=== PATIENT | female | born 1970 | race Caucasian/White ===

== ENCOUNTER 2023-05-19 09:43 | Outpatient (AMB) | payer OTHER, SELFPAY ==
--- NOTE | 2023-05-19 09:48 | A.OFFPC_ITS ---
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 Accompanied by: Self / Same As Patient Allergies No Known Allergies Allergy (Verified 05/19/23 09:58) Medication List - Last Reconciled 05/19/23 by Daphne Choudhury MD cyanocobalamin (vitamin B-12) 1,000 mcg IM Q4W Tobacco use date assessed: 05/19/23 Dental Screening Dental Screen Date: 05/19/23 Did you have a dental visit in the last 12 months?: Yes Did you have a dental problem in the last 6 months where you did not have access to dental care?: No Was dental information given to patient?: Patient has dentist HPI HPI Comments History of Present Illness Details This is a 52-year-old female that comes to establish care. She has B12 deficiency and has tried to take tablets in the past which has not worked for her. Last B12 injection was last week in [place] where she used to live. Labs and antibodies will be order to rule out pernicious anemia before the next injection. No chest pain or shortness of breath. No other acute complaint. [facility] Surgical History History of cholecystectomy Family History Mother Asthma Father Renal disease Substance use disorder Housing: Apartment Alcohol intake: current Alcohol intake frequency: holidays/special occasions only Alcohol type: wine Patient Tobacco Use Status: Never used Tobacco e-Cigarette/Vaping Use: Never Used Second Hand Smoke Exposure: No service: No Current occupational status: employed Current occupational exposures/hazards: No Cognitive needs: No Hearing needs: No Vision needs: Yes Questionnaire PHQ-9 Over the last 2 weeks, how often have you been bothered by any of the following problems? 1. Little interest or pleasure in doing things: not at all 2. Feeling down, depressed, or hopeless: not at all 3. Trouble falling or staying asleep, or sleeping too much: more than half the days 4. Feeling tired or having little energy: not at all 5. Poor appetite or overeating: not at all 6. Feeling bad about yourself - or that you are a failure or have let yourself or your family down: not at all 7. Trouble concentrating on things, such as reading the newspaper or watching television: not at all 8. Moving or speaking so slowly that other people could have noticed. Or the opposite - being so fidgety or restless that you have been moving around a lot more than usual: not at all 9. Thoughts that you would be better off or of hurting yourself in some way: not at all Total score: 2 Depression Screening Interpretation: Negative Depression Screening Done: Yes 91253 - PHQ-9 Billing: Yes Source: Developed by Drs. Tae Adame, April Paredes, Andres Ornelas and colleagues, with an educational elza from [employer]. Thrive Questionnaire Date Thrive assessed: 05/19/23 I am a: Patient What is your living situation today?: I have a steady place to live Within the past 12 months, did the food you bought not last and you didn't have the money to get more?: Never true Within the past 12 months, did you worry whether your food would run out before you got money to buy more?: Never true Do you have trouble paying for medicines?: No Do you have trouble getting transportation to medical appointments?: No Do you have trouble paying your heating and electricity bill?: No Do you have trouble taking care of your child, family member or friend?: No Do you have trouble with day-to-day activities such as bathing, preparing meals, shopping, managing finances, etc.?: No Are you currently unemployed and looking for a job?: No Are you interested in more education?: No Please select the resources that you would like help with: None Currently or been in a relationship where the following occur: no concerns reported AUDIT C Alcohol Use Questionnaire (AUDIT-C) 1. How often do you have a drink containing alcohol?: Monthly or less 2. How many drinks containing alcohol do you have on a typical day when you are drinking?: 1 or 2 3. How often do you have six or more drinks on one occasion?: Never Total Score: 1 DALTON-7 AMB Questionnaire DALTON-7 Date DALTON - 7 assessed: 05/19/23 Feeling nervous, anxious, or on edge: 2 = More than half the days Not being able to stop or control worryin = Several days Worrying too much about different things: 2 = More than half the days Trouble relaxin = More than half the days Becoming easily annoyed or irritable: 1 = Several days Feeling afraid as if something awful might happen: 2 = More than half the days Source: Developed by Drs. Tae Adame, April Paredes, Andres Ornelas and colleagues, with an educational elza from [employer]. DALTON-7 Assessment Billing DALTON-7 Assessment Tool: DALTON-7 Assessment 21941 Review of Systems Const All systems reviewed & are unremarkable except as noted in HPI and below Eyes Reports no additional complaints, Denies change in vision and Denies other visual disturbances Card Denies chest pain at rest, Denies chest pain with activity, Denies edema, Denies irregular heart rhythm, Denies claudication, Denies dyspnea, Denies dyspnea on exertion, Denies orthopnea, Denies paroxysmal nocturnal dyspnea and Denies slow heart rate Resp Denies cough, Denies dyspnea and Denies dyspnea on exertion GI Denies abdominal pain, Denies change in bowel habits, Denies excessive flatus, Denies nausea and Denies vomiting Denies urinary incontinence, Denies urinary hesitancy and Denies urinary urgency Musc Denies abnormal gait, Denies atrophy, Denies deformity and Denies limited range of motion Skin/Breast Denies bleeding lesions, Denies changing lesions and Denies rash Neuro Denies abnormal gait and Denies lack of coordination Physical exam (Primary Care) Vital Signs: Last Vital Signs BP 112/70 05/19/23 09:49 BMI result Body Mass Index 21.5 Tobacco/Smoking Status: Tobacco use Status Tobacco use date assessed 05/19/23 05/19/23 09:59 Patient Tobacco Use Status Never used Tobacco 05/19/23 09:59 e-Cigarette/Vaping Use Never Used 05/19/23 09:59 PHQ-9: PHQ-9 Score PHQ-9: Total score 2 05/19/23 10:03 Depression Screening Interpretation: Negative Thrive Assessment: Date of Thrive Assessment Date Thrive assessed 11/27/23 11/27/23 09:59 Currently or been in a relationship where the following occur: no concerns reported Const Orientation/consciousness: patient oriented x3 HENMT Head: Yes normal to inspection, Yes normocephalic and Yes atraumatic Ears: external ears normal Eyes General: appearance normal, both eyes and all related structures Eyelids: Yes eyelids normal Conjunctivae: conjunctivae normal Neck Neck: Yes normal visual inspection and Yes supple Resp Effort & Inspection: normal respiratory effort Auscultation: clear to auscultation bilaterally Cardio Jugular venous distension: no JVD Rate: regular rate Rhythm: regular rhythm Heart sounds: S1 normal heart sound present and S2 normal heart sound present GI Inspection: Yes normal to inspection Palpation (GI): Soft to palpation and nontender Auscultation: normal bowel sounds Skin General skin exam: no rashes or lesions noted Neuro General: patient oriented x3 and no focal motor deficits Extrem General: Yes full ROM Psych Appearance: grossly normal Assessment and Plan Assessment & Plan (1) B12 deficiency: Code(s): E53.8 - Deficiency of other specified B group vitamins Plan: Continue B12 supplements. Labs ordered. Orders: Orders Intrinsic Factor Antibodies Today E53.8 - Deficiency of other specified B group vitamins Parietal Cell Antibody Today E53.8 - Deficiency of other specified B group vitamins Vitamin B12 and Folate Today E53.8 - Deficiency of other specified B group vitamins Medications: New cyanocobalamin (vitamin B-12) 1,000 mcg IM Q4W 30 days 2 mL 3RF E53.8 - Deficiency of other specified B group vitamins insulin syringe-needle U-100 (BD Insulin Syringe) As directed 1 ea 6RF E53.8 - Deficiency of other specified B group vitamins Coding Level of Care Code New Pt Level 3 (82369) Diagnoses B12 deficiency E53.8 Additional Codes DALTON-7 Assessment Billing - DALTON-7 Assessment Tool: DALTON-7 Assessment 31258 ([id number]) Time Spent (min) 18
[2023-05-19 09:49] VITALS: BP 112/70; BMI 21.5
== END 2023-05-19 10:12 | disposition home or self-care (01) ==
PROVIDERS: PCP Internal Medicine; Visit Provider Internal Medicine
DX: E53.8 Deficiency of other specified B group vitamins (principal)
CPT/HCPCS: 99203

== ENCOUNTER 2023-05-19 10:25 | Outpatient (REF) | payer OTHER, SELFPAY ==
[2023-05-19 12:49] LABS: Folate 8.3 ng/mL (> or = 4.0); Vitamin B12 542 pg/mL (200-900)
== END 2023-05-19 10:26 | disposition home or self-care (01) ==
LOC: HO.LAB 10:25
PROVIDERS: PCP Internal Medicine; Visit Provider Internal Medicine
DX: E53.8 Deficiency of other specified B group vitamins (principal)
CPT/HCPCS: 36415; 82607; 82746

== ENCOUNTER 2023-09-23 12:57 | Outpatient (AMB) | payer OTHER, SELFPAY ==
--- NOTE | 2023-09-23 13:09 | A.OFFVIS_ITS ---
Vital Signs 09/23/23 13:10 Height 5 ft 5 in Weight 130 lb 1.164 oz BMI 21.6 BP 115/70 Blood Pressure Location Lt brachial Position Sitting Pulse 61 Intake Visit Reasons: pain and bloating of abdomen Intake Note: Zoila presents in the office as a new patient for bloating and pain in abdomen. CC: She states that she is having painful gas and bloating. She has had this for years. She is trying to establish care with a Gastro and figure out what is going on. She states that she realied she was gluten and lactose intolerant and since then her bowels have gotten a lot better. Allergies lactose Allergy (Mild, Verified 09/23/23 13:13) Unknown gluten Allergy (Mild, Uncoded 09/23/23 13:13) Unknown HPI HPI pain and bloating of abdomen: Details: 52-year-old female here for initial evaluation of abdominal bloating and pain. She is referred by Daphne Lujan of [facility] primary care. PMX pt denies IBS * SURGICAL HISTORY Cholecystectomy * ALLERGIES: NKDA * modu LABS: none relevent TODAY'S VISIT She has had stomach problems for as long as I can remember. She had her GB out many years ago and she is gluten intolerant and is somewhat lactose intolerant. [place] was [place] per her report. She saw an investigations manager, but he did not test for food allergies. She also can't eat red meat, salad dressings, cooking oils. This causes her stomach aches and at times diarrhea. She has abd pain that is just to the right of the umbilicus. If she passes gas this is better. At times, not. Most of her stools are normal and formed. She is status post cholecystectomy Her problems have been worsening over the years. She is taking probiotics with ? of some help. No N/V. Her grand,other of CRC and had lifelong diarrhea. Mother had GB removed and upset stomachs all of her life (the patient is also s/p jeremy), dtr dx'ed with IBS. Lactose intolerance is common and she has a dtr who was dx'ed with gluten intolerance. Neither has had and EGD. Will get RAST panel, CT abd he and pelvis, pancreatic elastase, and basic labs. May consider EGD going forward, but not alot of upper GI sx. Trial of simethicone. ROV 6 weeks. PFSH Surgical History Hx of colonoscopy History of cholecystectomy Family History (Updated 09/23/23 @ 13:14 by NARINDER Cardoso) Mother Asthma Father Renal disease Substance use disorder Maternal Grandmother Colon cancer Social History Housing: Apartment Alcohol intake: current Alcohol intake frequency: holidays/special occasions only Alcohol type: wine Patient Tobacco Use Status: Never used Tobacco e-Cigarette/Vaping Use: Never Used Second Hand Smoke Exposure: No service: No Current occupational status: employed Current occupational exposures/hazards: No Cognitive needs: No Hearing needs: No Vision needs: Yes Review of Systems Const Denies fatigue, Denies fever(s), Denies night sweats, Denies poor appetite and Denies weight loss ENT Reports Normal hearing present, Denies dental pain, Denies dysphagia, Denies hearing loss, Denies mouth pain, Denies odynophagia, Denies throat swelling, Denies tongue swelling and Reports other (Dentition adequate) Card Reports no additional complaints Resp Reports no additional complaints GI Details: Denies abdominal pain, Denies melena, Reports bloating, Denies hematochezia, Denies constipation, Denies GI cramping, Denies dysphagia, Denies excessive flatus, Denies early satiety, Denies heartburn, Denies diarrhea, Denies nausea, Denies odynophagia, Denies vomiting and Denies hematemesis Skin/Breast Denies pruritus, Denies lesions, Denies rash and Denies jaundice Neuro Reports Normal hearing present and Denies Abnormal speech present Endo Denies fatigue Aller/Immun Denies throat swelling and Denies tongue swelling Physical Exam Vital Signs: Last Vital Signs Pulse 61 09/23/23 13:10 BP 115/70 09/23/23 13:10 BMI result Body Mass Index 21.6 Const General: cooperative, no acute distress, well developed and well groomed Nutritional Appearance: average body habitus and well nourished Orientation/consciousness: oriented to person, oriented to place and oriented to time Limitations: No language barrier HEENT Head: Yes normocephalic and Yes atraumatic Eyes General: appearance normal, both eyes and all related structures Pupils: Equal, round and reactive pupils present Neck Neck: Yes normal visual inspection and Yes no lymphadenopathy Thyroid: Thyroid normal Resp Effort & Inspection: normal respiratory effort and able to speak in complete sentences Auscultation: clear to auscultation bilaterally Cardio Rate: regular rate Rhythm: regular rhythm Heart sounds: Normal, physiologic split S2 sound present Peripheral pulses: radial pulses present and posterior tibial pulses present GI Inspection: No distended and No Abdominal panniculus present Palpation (GI): Soft to palpation, nontender, no guarding, not rigid and No hepatosplenomegaly present Percussion: Yes normal to percussion Auscultation: normal bowel sounds Rectal Exam - Female: deferred Skin General skin exam: no rashes or lesions noted, turgor normal, skin not dry, no jaundice, No spider nevi and no striae Rashes: no rashes Nails: normal Neuro General: oriented to person, oriented to place and oriented to time Cranial nerves: Yes Equal, round and reactive pupils present and Yes Normal hearing present Speech: No Abnormal speech present Extrem General: Yes normal to inspection, No clubbing, No cyanosis and No edema Psych Appearance: grossly normal and well kempt Mental Status: mental status grossly normal Speech and movement: Normal speech and movement present Affect: normal affect Attitude: cooperative Thought process: Normal thought process present and not confabulating Thought content: Normal thought content present Insight: Limited insight present (Psych) Judgement: Limited judgement present (Psych) Assessment & Plan Assessment & Plan (1) Abdominal pain: Code(s): R10.9 - Unspecified abdominal pain Category: Medical (2) Abdominal bloating: Code(s): R14.0 - Abdominal distension (gaseous) Category: Medical Plan She has had stomach problems for as long as I can remember. She had her GB out many years ago and she is gluten intolerant and is somewhat lactose intolerant. She [place] that was normal per her report. She saw an investigations manager, but he did not test for food allergies. She also can't eat red meat, salad dressings, cooking oils. This causes her stomach aches and at times diarrhea. She has abd pain that is just to the right of the umbilicus. If she passes gas this is better. At times, not. Most of her stools are normal and formed. She is status post cholecystectomy Her problems have been worsening over the years. She is taking probiotics with ? of some help. No N/V. Her grand,other of CRC and had lifelong diarrhea. Mother had GB removed and upset stomachs all of her life (the patient is also s/p jeremy), dtr dx'ed with IBS. Lactose intolerance is common and she has a dtr who was dx'ed with gluten intolerance. Neither has had and EGD. Will get RAST panel, CT abd he and pelvis, pancreatic elastase, and basic labs. May consider EGD going forward, but not alot of upper GI sx. Trial of simethicone. ROV 6 weeks. Orders: Orders Rast Allergen 09/24/23 R10.9 - Unspecified abdominal pain Transglutaminase IgA 09/24/23 R10.9 - Unspecified abdominal pain Transglutaminase Ab IgG 09/24/23 R10.9 - Unspecified abdominal pain CT abdomen pelvis w IV con 09/23/23 R10.9 - Unspecified abdominal pain Complete Blood Count Auto Diff 09/24/23 R10.9 - Unspecified abdominal pain, R14.0 - Abdominal distension (gaseous) Comprehensive Met. Panel 09/24/23 R10.9 - Unspecified abdominal pain, R14.0 - Abdominal distension (gaseous) Calprotectin, Fecal 09/25/23 R10.9 - Unspecified abdominal pain Pancreatic Elastase-1 09/25/23 R10.9 - Unspecified abdominal pain Medications: New simethicone after meals 180 mg PO .tidac 90 caps 3RF 30 days R14.0 - Abdominal distension (gaseous) Discontinued cyanocobalamin (vitamin B-12) Discontinued Reason: Patient Completed Course 1,000 mcg IM Q4W 30 days 2 mL 3RF E53.8 - Deficiency of other specified B group vitamins Coding Level of Care Code Est Pt Level 3 (44059) Diagnoses Abdominal pain R10.9 Abdominal bloating R14.0
[2023-09-23 13:10] VITALS: BP 115/70; PULSE 61; BMI 21.6
== END 2023-09-23 14:06 | disposition home or self-care (01) ==
PROVIDERS: PCP Internal Medicine; Visit Provider Nurse Practitioner
DX: R10.9 Unspecified abdominal pain (principal); R14.0 Abdominal distension (gaseous)
CPT/HCPCS: 99213

== ENCOUNTER 2023-09-23 12:57 | Outpatient (REF) | payer OTHER, SELFPAY | END 2023-09-23 12:58 | disposition home or self-care (01) | LOC: HO.LAB 12:57 | PROVIDERS: PCP Internal Medicine; Visit Provider Nurse Practitioner | DX: Z13.89 Encounter for screening for other disorder (principal) ==

== ENCOUNTER 2023-09-24 12:39 | Outpatient (REF) | payer OTHER, SELFPAY ==
[2023-09-24 12:57] LABS: MANUAL DIFF FLAG NO
[2023-09-24 13:46] LABS: Basophils Absolute Auto 0.1 X10*3/uL (0.0-0.2); Eosinophils Absolute Auto 0.2 X10*3/uL (0.0-0.4); Eosinophils Percent Auto 3.3 % (0-4); Hematocrit 41.8 % (37.0-47.0); Hemoglobin 13.8 g/dl (12.0-16.0); Imm Gran Abs Auto 0.02 X10*3/uL (0.00-0.03); Imm Gran Pct Auto 0.3 % (0.0-0.4); Lymphocytes Absolute Auto 2.2 X10*3/uL (1.2-4.9); Lymphocytes Percent Auto 37.4 % (20-40); Mean Corpuscular Hemoglobin 30.8 pg (27.0-33.0); Mean Corpuscular Volume 93.3 fL (80.0-98.0); Mean Platelet Volume 11.5 fL (9.4-12.3); Monocytes Absolute Auto 0.5 X10*3/uL (0.1-1.2); Monocytes Percent Auto 8.4 % (2-11); Neutrophils Absolute Auto 2.9 x10*3/uL (2.0-8.3); Neutrophils Percent Auto 49.6 % (45-73); Platelet Count 267 X10*3/uL (160-400); Red Blood Count 4.48 X10*6/uL (4.20-5.50); White Blood Count 5.8 X10*3/uL (4.8-10.8)
[2023-09-24 14:14] LABS: Alanine Aminotransferase 11 U/L (0-31); Alkaline Phosphatase 45 U/L (39-117); Anion Gap 11 (12-20); Aspartate Amino Transferase 16 U/L (5-31); Bilirubin Total 0.4 mg/dL (0.0-1.0); Blood Urea Nitrogen 7 mg/dL (9-16); Calcium 9.5 mg/dL (8.4-10.2); Carbon Dioxide 29 mmol/L (22-29); Chloride 106 mmol/L (96-108); Estimated Glomerular Filt Rate > 60; Glucose Random 82 mg/dL (60-115); Potassium 3.9 mmol/L (3.3-5.1); Sodium 142 mmol/L (135-145); Total Protein 7.2 g/dL (6.5-8.0)
[2023-09-25 13:19] LABS: Transglutaminase Ab IgG <1.0 U/mL; Transglutaminase IgA <1.0 U/mL
[2023-10-01 22:48] LABS: Pancreatic Elastase-1 454 mcg/g
[2023-10-02 00:59] LABS: Calprotectin, Fecal <5 mcg/g
== END 2023-09-24 12:40 | disposition home or self-care (01) ==
LOC: HO.LAB 12:39
PROVIDERS: PCP Internal Medicine; Visit Provider Nurse Practitioner
DX: R10.9 Unspecified abdominal pain (principal); R14.0 Abdominal distension (gaseous); Z91.09 Other allergy status, other than to drugs and biological substances
CPT/HCPCS: 36415; 80053; 82656; 83993; 85025; 86003; 86364

== ENCOUNTER → 2023-11-04 11:49 | Outpatient (BNVA) | payer OTHER, SELFPAY | PROVIDERS: PCP Internal Medicine; Visit Provider Nurse Practitioner ==

== ENCOUNTER 2024-01-19 09:23 | Outpatient (AMB) | payer OTHER, SELFPAY ==
--- NOTE | 2024-01-19 09:26 | A.OFFPC_ITS ---
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 Accompanied by: Self / Same As Patient Allergies gluten Allergy (Severe, Verified 01/19/24 09:34) Unknown lactose Allergy (Mild, Verified 01/19/24 09:34) Unknown gluten Allergy (Mild, Uncoded 01/19/24 09:34) Unknown Medication List - Last Reconciled 01/19/24 by Daphne Choudhury MD barium sulfate 2%(w/v) (Readi-Cat 2) 150 mL PO ONCE 1 day biotin (Hair, Skin and Nails (biotin)) mcg PO insulin syringe-needle U-100 (BD Insulin Syringe) As directed lactobacillus combination no.9 (Adult 50 Plus Probiotic) 4,000 mmu cells PO DAILY mebkjx-rnwoaeaj-chwedhi 24,000-76,000 -120,000 unit (Creon) 2 caps PO BID 30 days simethicone 180 mg PO .tidac 30 days Tobacco use date assessed: 01/19/24 Dental Screening Dental Screen Date: 01/19/24 Did you have a dental visit in the last 12 months?: Yes Did you have a dental problem in the last 6 months where you did not have access to dental care?: No Was dental information given to patient?: Patient has dentist HPI HPI Comments History of Present Illness Details This is a 53-year-old female that comes for her physical exam. Mammogram was done over a year ago. Pap smear done about a year ago and was normal. Colonoscopy done less than 2 years ago and was normal as per patient. Denies any chest pain or shortness on breath. [facility] Surgical History Hx of colonoscopy History of cholecystectomy Family History Mother Asthma Father Renal disease Substance use disorder Maternal Grandmother Colon cancer Social History Housing: Apartment Alcohol intake: current Alcohol intake frequency: holidays/special occasions only Alcohol type: wine Patient Tobacco Use Status: Never used Tobacco e-Cigarette/Vaping Use: Never Used Second Hand Smoke Exposure: No service: No Current occupational status: employed Current occupational exposures/hazards: No Cognitive needs: No Hearing needs: No Vision needs: Yes Questionnaire PHQ-9 Over the last 2 weeks, how often have you been bothered by any of the following problems? 1. Little interest or pleasure in doing things: not at all 2. Feeling down, depressed, or hopeless: not at all 3. Trouble falling or staying asleep, or sleeping too much: not at all 4. Feeling tired or having little energy: not at all 5. Poor appetite or overeating: not at all 6. Feeling bad about yourself - or that you are a failure or have let yourself or your family down: not at all 7. Trouble concentrating on things, such as reading the newspaper or watching television: not at all 8. Moving or speaking so slowly that other people could have noticed. Or the opposite - being so fidgety or restless that you have been moving around a lot more than usual: not at all 9. Thoughts that you would be better off or of hurting yourself in some way: not at all Total score: 0 Depression Screening Interpretation: Negative Depression Screening Done: Yes 72438 - PHQ-9 Billing: Yes Source: Developed by Drs. Tae Adame, April Paredes, Andres Ornelas and colleagues, with an educational elza from [employer] Thrive Questionnaire Date Thrive assessed: 01/19/24 I am a: Patient What is your living situation today?: I have a steady place to live Within the past 12 months, did the food you bought not last and you didn't have the money to get more?: Never true Within the past 12 months, did you worry whether your food would run out before you got money to buy more?: Never true Do you have trouble paying for medicines?: No Do you have trouble getting transportation to medical appointments?: No Do you have trouble paying your heating and electricity bill?: No Do you have trouble taking care of your child, family member or friend?: No Do you have trouble with day-to-day activities such as bathing, preparing meals, shopping, managing finances, etc.?: No Are you currently unemployed and looking for a job?: No Are you interested in more education?: No Please select the resources that you would like help with: None Currently or been in a relationship where the following occur: No concerns reported THRIVE Score: 0 AUDIT C Alcohol Use Questionnaire (AUDIT-C) 1. How often do you have a drink containing alcohol?: Monthly or less 2. How many drinks containing alcohol do you have on a typical day when you are drinking?: 1 or 2 3. How often do you have six or more drinks on one occasion?: Never Total Score: 1 Score Reviewed/Action Taken: No DALTON-7 AMB Questionnaire DALTON-7 Date DALTON - 7 assessed: 01/19/24 Feeling nervous, anxious, or on edge: 0 = Not at all Not being able to stop or control worryin = Not at all Worrying too much about different things: 0 = Not at all Trouble relaxin = Not at all Being so restless that it is hard to sit still: 0 = Not at all Becoming easily annoyed or irritable: 0 = Not at all Feeling afraid as if something awful might happen: 0 = Not at all Total DALTON-7 score (0-4 normal; 5-9 mild; 10-14 moderate; 15-21 severe): 0 Source: Developed by Drs. Tae Adame, April Paredes, Andres Ornelas and colleagues, with an educational elza from [employer] DALTON-7 Assessment Billing DALTON-7 Assessment Tool: DALTON-7 Assessment 15325 Review of Systems Const All systems reviewed & are unremarkable except as noted in HPI and below Card Denies chest pain at rest, Denies chest pain with activity, Denies edema, Denies irregular heart rhythm, Denies claudication, Denies dyspnea, Denies dyspnea on exertion, Denies orthopnea, Denies paroxysmal nocturnal dyspnea and Denies slow heart rate Resp Denies cough, Denies dyspnea and Denies dyspnea on exertion GI Denies abdominal pain, Denies change in bowel habits, Denies excessive flatus, Denies nausea and Denies vomiting Neuro Denies lack of coordination Physical exam (Primary Care) Vital Signs: Last Vital Signs BP 110/72 01/19/24 09:27 BMI result Body Mass Index 21.8 Tobacco/Smoking Status: Tobacco use Status Tobacco use date assessed 01/19/24 01/19/24 09:30 Patient Tobacco Use Status Never used Tobacco 01/19/24 09:30 e-Cigarette/Vaping Use Never Used 01/19/24 09:30 PHQ-9: PHQ-9 Score PHQ-9: Total score 0 01/19/24 09:34 Depression Screening Interpretation: Negative Thrive Assessment: Date of Thrive Assessment Date Thrive assessed 01/19/24 01/19/24 09:34 Currently or been in a relationship where the following occur: No concerns reported [facility] Head: Yes normal to inspection, Yes normocephalic and Yes atraumatic Ears: external ears normal Eyes General: appearance normal, both eyes and all related structures Eyelids: Yes eyelids normal Conjunctivae: conjunctivae normal Neck Neck: Yes normal visual inspection and Yes supple Resp Effort & Inspection: normal respiratory effort Auscultation: clear to auscultation bilaterally Cardio Jugular venous distension: no JVD Rate: regular rate Rhythm: regular rhythm Heart sounds: S1 normal heart sound present and S2 normal heart sound present GI Inspection: Yes normal to inspection Palpation (GI): Soft to palpation and nontender Auscultation: normal bowel sounds Skin General skin exam: no rashes or lesions noted Neuro General: no focal motor deficits Extrem General: Yes full ROM Psych Appearance: grossly normal Assessment and Plan Assessment & Plan (1) Physical exam: Code(s): Z00.00 - Encounter for general adult medical examination without abnormal findings Plan: Repeat in a year. Orders: Orders MM screening mammo BI Today Z12.31 - Encounter for screening mammogram for malignant neoplasm of breast Lipid Panel Today Z00.00 - Encounter for general adult medical examination without abnormal findings Coding Level of Care Code Est Pt Prev Care 40-64y(27119) Diagnoses Physical exam Z00.00 Additional Codes DALTON-7 Assessment Billing - DALTON-7 Assessment Tool: DALTON-7 Assessment 84290 ([id number]) Time Spent (min) 31
[2024-01-19 09:27] VITALS: BP 110/72; BMI 21.8
== END 2024-01-19 09:47 | disposition home or self-care (01) ==
PROVIDERS: PCP Internal Medicine; Visit Provider Internal Medicine
DX: Z00.00 Encounter for general adult medical examination without abnormal findings (principal)
CPT/HCPCS: 99396

== ENCOUNTER 2024-03-03 08:24 | Outpatient (REF) | payer OTHER, SELFPAY ==
[2024-03-03 09:51] LABS: Cholesterol 174 mg/dL (<200); HDL Cholesterol 54 mg/dL (>40); LDL Cholesterol Calculated 105 mg/dL (<100); Triglycerides 79 mg/dL (<150)
== END 2024-03-03 08:25 | disposition home or self-care (01) ==
LOC: HO.LAB 08:24
PROVIDERS: PCP Internal Medicine; Visit Provider Internal Medicine
DX: Z00.00 Encounter for general adult medical examination without abnormal findings (principal)
CPT/HCPCS: 36415; 80061

== ENCOUNTER 2024-07-06 10:57 | Outpatient (REF) | payer OTHER, SELFPAY | END 2024-07-06 10:58 | disposition home or self-care (01) | LOC: HO.MAMMO 10:57 | PROVIDERS: PCP Internal Medicine; Visit Provider Internal Medicine | DX: Z12.31 Encounter for screening mammogram for malignant neoplasm of breast (principal) | CPT/HCPCS: 77063; 77067 ==

== ENCOUNTER → 2024-07-06 11:15 | Outpatient (BNV) | payer OTHER, SELFPAY | PROVIDERS: PCP Internal Medicine; Visit Provider Internal Medicine | DX: Z12.31 Encounter for screening mammogram for malignant neoplasm of breast (principal) | CPT/HCPCS: 77063; 77067 ==

== ENCOUNTER 2024-08-18 12:11 | Outpatient (REF) | payer OTHER, SELFPAY ==
--- NOTE | ~2024-08-18 | US_ITS ---
EXAMINATION: US DIAGNOSTIC ULTRASOUND BREAST, BILATERAL CLINICAL INFORMATION: Call back from screening for breast asymmetries.. COMPARISON: Comparison is made with relevant prior imaging. TECHNIQUE: Ultrasound of the breast is performed with real-time vásquez scale imaging and color Doppler. FINDINGS: Targeted color Doppler ultrasound demonstrates multiple simple cysts in the bilateral breasts. Left: There is a simple cyst at 1:00 3 cm from the nipple measuring 20 x 22 x 13 mm which correlates with the focal asymmetry seen on mammography. At 2:00 3 cm from nipple there is an simple cyst measuring 20 x 51 x 38 mm which correlates with the focal asymmetry on mammography. Right: Scanning in the right retroareolar region there is a simple cyst measuring 14 x 9 x 15 mm. Results are discussed with the patient at time of visit. US/US breast BI limited mamm only IMPRESSION: Bilateral simple cysts on ultrasound. Benign. ASSESSMENT: BI-RADS 2: Benign RECOMMENDATION: Routine annual mammography screening. This patient's information was entered into a reminder system with a target due date for their next mammogram. Electronically signed by: Krystina Greco DO 08/18/2024 01:06 PM JOSS
== END 2024-08-18 12:12 | disposition home or self-care (01) ==
LOC: HO.MAMMO 12:11
PROVIDERS: PCP Internal Medicine; Visit Provider Internal Medicine
DX: N60.02 Solitary cyst of left breast (principal); N60.01 Solitary cyst of right breast
CPT/HCPCS: 76642

== ENCOUNTER → 2024-08-18 12:30 | Outpatient (BNV) | payer OTHER, SELFPAY | PROVIDERS: PCP Internal Medicine; Visit Provider Internal Medicine | DX: N64.89 Other specified disorders of breast (principal) | CPT/HCPCS: 76642 ==

== ENCOUNTER 2024-11-22 07:36 | Outpatient (AMB) | payer OTHER, SELFPAY ==
[2024-11-22 07:40] VITALS: BP 108/64; BMI 22.0
--- NOTE | 2024-11-22 07:40 | A.OFFPC_ITS ---
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 Institutional Commodity Analyst: Present Accompanied by: Self / Same As Patient Allergies gluten Allergy (Severe, Verified 11/22/24 07:52) Unknown lactose Allergy (Mild, Verified 11/22/24 07:52) Unknown gluten Allergy (Mild, Uncoded 11/22/24 07:52) Unknown Medication List - Last Reconciled 11/22/24 by Daphne Choudhury MD No Known Home Meds Tobacco use date assessed: 11/22/24 Dental Screening Dental Screen Date: 11/22/24 Did you have a dental visit in the last 12 months?: Yes Did you have a dental problem in the last 6 months where you did not have access to dental care?: No Was dental information given to patient?: Patient has dentist HPI HPI Comments History of Present Illness Details The patient is a 54-year-old female presenting with a concern about a new palpable retroareolar lump in the left breast. She discovered the lump approximately 10 days ago. The patient underwent a mammogram in June, followed by a breast ultrasound in July. The June mammogram indicated asymmetries in the left breast, while the ultrasound revealed simple cysts, including a retroareolar lesion in the right breast and simple cysts at positions 1 and 2 in the left breast. The patient notes that this newly identified lump is located behind the left nipple and feels larger than surrounding areas. She denies any breast pain or skin changes associated with the lump. The patient's lifestyle includes social alcohol consumption during special occasions, and she denies any tobacco use. Her allergies include gluten and lactose. [facility] Surgical History Hx of colonoscopy History of cholecystectomy Family History Mother Asthma Father Renal disease Substance use disorder Maternal Grandmother Colon cancer Social History (Updated 11/22/24 @ 07:56 by Daphne Choudhury MD) Housing: Apartment Alcohol intake: current Alcohol intake frequency: a few times a month Alcohol type: wine Patient Tobacco Use Status: Never used Tobacco e-Cigarette/Vaping Use: Never Used Second Hand Smoke Exposure: No service: No Current occupational status: employed Current occupational exposures/hazards: No Cognitive needs: No Hearing needs: No Vision needs: Yes Questionnaire PHQ-9 Over the last 2 weeks, how often have you been bothered by any of the following problems? 1. Little interest or pleasure in doing things: not at all 2. Feeling down, depressed, or hopeless: not at all 3. Trouble falling or staying asleep, or sleeping too much: not at all 4. Feeling tired or having little energy: several days 5. Poor appetite or overeating: not at all 6. Feeling bad about yourself - or that you are a failure or have let yourself or your family down: not at all 7. Trouble concentrating on things, such as reading the newspaper or watching television: several days 8. Moving or speaking so slowly that other people could have noticed. Or the opposite - being so fidgety or restless that you have been moving around a lot more than usual: not at all 9. Thoughts that you would be better off or of hurting yourself in some way: not at all Total score: 2 Depression Screening Interpretation: Negative Depression Screening Done: Yes 98102 - PHQ-9 Billing: Yes Source: Developed by Drs. Tae Adame, April Paredes, Andres Ornelas and colleagues, with an educational elza from [employer] Thrive Questionnaire Date Thrive assessed: 11/16/24 I am a: Patient What is your living situation today?: I have a steady place to live Within the past 12 months, did the food you bought not last and you didn't have the money to get more?: Never true Within the past 12 months, did you worry whether your food would run out before you got money to buy more?: Never true Do you have trouble paying for medicines?: No Do you have trouble getting transportation to medical appointments?: No Do you have trouble paying your heating and electricity bill?: No Do you have trouble taking care of your child, family member or friend?: No Do you have trouble with day-to-day activities such as bathing, preparing meals, shopping, managing finances, etc.?: No Are you currently unemployed and looking for a job?: No Are you interested in more education?: No Please select the resources that you would like help with: None Currently or been in a relationship where the following occur: No concerns reported THRIVE Score: 0 AUDIT C Alcohol Use Questionnaire (AUDIT-C) 1. How often do you have a drink containing alcohol?: 2-4 times a month 2. How many drinks containing alcohol do you have on a typical day when you are drinking?: 1 or 2 3. How often do you have six or more drinks on one occasion?: Never Total Score: 2 Score Reviewed/Action Taken: No DALTON-7 AMB Questionnaire DALTON-7 Date DALTON - 7 assessed: 11/22/24 Feeling nervous, anxious, or on edge: 1 = Several days Not being able to stop or control worryin = Not at all Worrying too much about different things: 0 = Not at all Trouble relaxin = Several days Being so restless that it is hard to sit still: 0 = Not at all Becoming easily annoyed or irritable: 0 = Not at all Feeling afraid as if something awful might happen: 0 = Not at all Total DALTON-7 score (0-4 normal; 5-9 mild; 10-14 moderate; 15-21 severe): 2 Source: Developed by Drs. Tae Adame, April Paredes, Andres Ornelas and colleagues, with an educational elza from [employer] DALTON-7 Assessment Billing DALTON-7 Assessment Tool: DALTON-7 Assessment 42660 Review of Systems Const All systems reviewed & are unremarkable except as noted in HPI and below Card Denies chest pain at rest, Denies chest pain with activity, Denies edema, Denies irregular heart rhythm, Denies claudication, Denies dyspnea, Denies dyspnea on exertion, Denies orthopnea, Denies paroxysmal nocturnal dyspnea and Denies slow heart rate Resp Denies cough, Denies dyspnea and Denies dyspnea on exertion GI Denies abdominal pain, Denies change in bowel habits, Denies excessive flatus, Denies nausea and Denies vomiting Skin/Breast Reports breast mass Neuro Denies lack of coordination Physical exam (Primary Care) Vital Signs: Last Vital Signs BP 108/64 11/22/24 07:40 BMI result Body Mass Index 22.0 Tobacco/Smoking Status: Tobacco use Status Tobacco use date assessed 11/22/24 11/22/24 07:51 Patient Tobacco Use Status Never used Tobacco 11/22/24 07:46 e-Cigarette/Vaping Use Never Used 11/22/24 07:46 PHQ-9: PHQ-9 Score PHQ-9: Total score 2 11/22/24 07:51 Depression Screening Interpretation: Negative Thrive Assessment: Date of Thrive Assessment Date Thrive assessed 11/16/24 11/22/24 07:46 Currently or been in a relationship where the following occur: No concerns reported Chest Breast/axilla inspection: normal inspection of the axillae Breast/axilla palpation: normal palpation of the axillae and abnormal palpation of the breast (Left breast mass at 12:00) Resp Effort & Inspection: normal respiratory effort Auscultation: clear to auscultation bilaterally Cardio Jugular venous distension: no JVD Rate: regular rate Rhythm: regular rhythm Heart sounds: S1 normal heart sound present and S2 normal heart sound present Extrem General: Yes full ROM Coding Level of Care Code Est Pt Level 3 (07506) Complex EM visit Add On G2211 Diagnoses Subareolar mass of left breast N63.42 Breast mass location: subareolar Additional Codes PHQ-9 - 92210 - PHQ-9 Billing: Yes ([id number]) DALTON-7 Assessment Billing - DALTON-7 Assessment Tool: DALTON-7 Assessment 04032 ([id number]) Time Spent (min) 19 Assessment & Plan Assessment & Plan (1) Left breast mass: Code(s): N63.20 - Unspecified lump in the left breast, unspecified quadrant Category: Medical Qualifiers: Breast mass location: subareolar Qualified Code(s): N63.42 - Unspecified lump in left breast, subareolar Plan I have referred the patient for a surgical evaluation regarding the palpable retroareolar lump in the left breast. This referral is necessary for further diagnostic investigations to determine the nature of this lump, considering prior findings of cysts in both breasts and the potential need for a biopsy. The patient was advised of the risks and benefits of surgical evaluation and the importance of addressing new breast masses promptly. The patient has been informed that follow-up plans will depend on the outcomes of the surgical assessment. Patient was informed and verbally consented to the use of an ambient scribe for clinic note documentation during this visit. We discussed the significance of the new palpable lump in the left breast and the history of previous imaging findings showing cysts. I recommended a surgical consultation for a more thorough evaluation of the lump, emphasizing the need for further diagnostic investigations to determine its nature. I explained the process and the importance of ruling out any malignant causes. The patient was informed about the possible need for a biopsy and the continuation of care based on the surgeon's evaluation. I outlined the importance of following through with the referral to ensure appropriate management. Orders: Orders MM diagnostic mammo unilat LT Today N63.20 - Unspecified lump in the left breast, unspecified quadrant US breast LT limited Today N63.20 - Unspecified lump in the left breast, unspecified quadrant Vitamin B12 and Folate Today E53.8 - Deficiency of other specified B group vitamins Lipid Panel Today Z00.00 - Encounter for general adult medical examination without abnormal findings Intrinsic Factor Antibodies Today E53.8 - Deficiency of other specified B group vitamins Parietal Cell Antibody Today E53.8 - Deficiency of other specified B group vitamins Comprehensive [place]. Panel Fast Today Z00.00 - Encounter for general adult medical examination without abnormal findings Complete Blood Count Auto Diff Today D64.9 - Anemia, unspecified, E53.8 - Deficiency of other specified B group vitamins Referrals General Surgery Referral N63.20 - Unspecified lump in the left breast, unspecified quadrant Patient Instructions: - Follow up with the surgeon as referred for further evaluation of the breast lump. - Monitor for any changes in the lump or the onset of new symptoms and report these promptly. - Continue to avoid gluten and lactose due to allergies. - Consume alcohol responsibly, only on special occasions, as previously discussed.
== END 2024-11-22 08:33 | disposition home or self-care (01) ==
LOC: HO.HMCH 07:37
PROVIDERS: PCP Internal Medicine; Visit Provider Internal Medicine
DX: N63.42 Unspecified lump in left breast, subareolar (principal)

== ENCOUNTER → 2024-11-22 07:36 | Outpatient (BNVA) | payer OTHER, SELFPAY | PROVIDERS: PCP Internal Medicine; Visit Provider Internal Medicine | DX: N60.02 Solitary cyst of left breast (principal); N64.89 Other specified disorders of breast; N63.42 Unspecified lump in left breast, subareolar; E53.8 Deficiency of other specified B group vitamins; D64.9 Anemia, unspecified | CPT/HCPCS: 96127 ==

== ENCOUNTER 2024-11-29 08:14 | Outpatient (REF) | payer OTHER, SELFPAY ==
--- NOTE | ~2024-11-29 | US_ITS ---
EXAMINATION: MM DIAGNOSTIC DIGITAL MAMMOGRAPHY, LEFT Limited left breast ultrasound. CLINICAL INFORMATION: Palpable left breast lump. COMPARISON: Mammography: [facility] on PACS. TECHNIQUE: Digital mammography is performed in craniocaudal and mediolateral oblique views along with computer-aided detection (CAD). FINDINGS: The breasts are heterogeneously dense, which may obscure small masses (ACR BI-RADS breast composition Category c). BB marker in the upper central breast with underlying circumscribed oval masses which were previously seen in July and demonstrated to be simple cysts on ultrasound. No suspicious calcifications or other abnormal findings. Targeted color Doppler ultrasound scanning in the area the patient's palpable lump demonstrates a simple cyst at 12:00 1 cm from the nipple measuring 22 x 19 x 14 mm there is an additional simple cyst at 2:00 1 cm from the nipple measuring 39 x 21 x 38 mm. Results are provided to the patient at time of visit by the technologist. US/US breast LT limited mamm only IMPRESSION: Simple cysts on ultrasound which correlate with the patient's palpable lumps. Benign. If the patient has pain cyst aspiration could be considered. ASSESSMENT: BI-RADS BI-RADS 2 - Benign Findings RECOMMENDATION: 1 year F/U This patient's information was entered into a reminder system with a target due date for their next mammogram. Electronically signed by: Krystina Greco DO 11/29/2024 09:24 AM EDT
== END 2024-11-29 08:15 | disposition home or self-care (01) ==
LOC: HO.MAMMO 08:14
PROVIDERS: PCP Internal Medicine; Visit Provider Internal Medicine
DX: N63.25 Unspecified lump in the left breast, overlapping quadrants (principal)
CPT/HCPCS: 76642; 77062; 77065

== ENCOUNTER → 2024-11-29 08:15 | Outpatient (BNV) | payer OTHER, SELFPAY | PROVIDERS: PCP Internal Medicine; Visit Provider Internal Medicine | DX: N63.20 Unspecified lump in the left breast, unspecified quadrant (principal); N60.12 Diffuse cystic mastopathy of left breast | CPT/HCPCS: 76642; 77061; 77065 ==

== ENCOUNTER 2025-01-24 07:30 | Outpatient (AMB) | payer OTHER, SELFPAY ==
--- OUTSIDE RECORDS SUMMARY | 2025-01-24 07:33 | XMS_ITS | Encounter Summary ---
Author Organization [facility] Address [address] [place] [address] Care Team Providers Care Wave Soldering Machine Operator Name Role Phone Radha Buck MD Primary Care Provider + Encounter Details Date Type Department Care Team (Late st Contact Info) Description 01/28/2020 Lab Requisition [facility] Pathology & Laboratory Medicine - [address] [address] Guzman Dai MD [address] [place], [place] [phone] Encounter for other general examination Social History Tobacco Use Types Packs/Day Years Used Date Smoking Tobacco: Never Assessed Comments Unknown Sex and Gender Information Value Date Recorded Sex Assigned at Not on file Legal Sex Female 17:39 EST Gender Identity Not on file Sexual Orientation Not on file documented as of this encounter Plan of Treatment Not on file documented as of this encounter Procedures Procedure Name Priority Date/Time Associated Diagnosis Comments PAP TEST Today 01/27/2020 10:44 EDT Encounter for other general examination HPV DNA DETECTION WITH GENOTYPING, PCR Today 01/27/2020 10:44 EDT Encounter for other general examination documented in this encounter Results * HUMAN PAPILLOMAVIRUS (HPV) DETECTION-HIGH RISK TYPES (01/27/2020 10:44 EDT) HPV other High Risk types, PCR Negative Negative 02/10/2020 14:46 EDT [facility] Comment:No E6 or E7 mRNA is detected from HPV types 16,18,31,33,35,39,45,51,52,56,58,59,66, and 68 by cork insulator mediated amplification. Papanicolaou smear specimen (specimen) CERVIX UTERI STRUCTURE / Unknown 01/27/2020 10:44 EDT 02/08/2020 15:15 EDT Guzman Dai MD PATHOLOGY ORDERABLES Final Result [facility] [address] [place] [id number] * PAP TEST (01/27/2020 10:44 EDT) Specimens A. Cervix and/or Endocervix , ThinPrep Imaging System with Manual Evaluation 02/10/2020 14:46 T [facility] Specimen Adequacy Satisfactory for Evaluation - transformation zone component present Scant due to excessive blood 02/10/2020 14:46 [facility] General Categorization Negative for intraepithelial lesion or malignancy 02/10/2020 14:46 [facility] Attestation . 02/10/2020 14:46 [facility] at 1446 EDT Clinical History NONE 02/10/20 14:46 T [facility] HPV The result for the Human Papillomavirus (HPV) Detection-High Risk Types is Negative. No E6 or E7 mRNA is detected from HPV types 16,18,31,33,35,39 ,45,51,52,56,58,5 9,66, and 68 by cork insulator mediated amplification.Bertha ting was performed on specimen [id number] and was resulted on 02/10/2020 1409 EDT by FREDERIC, LAB INSTRUMENT RESULTS IN 02/10/2020 14:46 T [facility] Scanned Images 02/10/2020 14:46 T [facility] Papanicolaou smear specimen (specimen) CERVIX UTERI STRUCTURE / Unknown 01/27/2020 10:44 EDT 01/28/2020 13:18 EDT us Guzman Dai MD PATHOLOGY ORDERABLES Final Result [facility] [address] [place] [address] documented in this encounter Visit Diagnoses Diagnosis Encounter for other general examination documented in this encounter Care Teams Wave Soldering Machine Operator Relationship Specialty Start Date End Date Radha Buck MD [address] [place] [id number] PCP - General 12/21/08 documented as of this encounter
[2025-01-24 07:40] VITALS: BP 108/64; PULSE 72; O2SAT 98; BMI 21.5
--- NOTE | 2025-01-24 07:40 | A.OFFPC_ITS ---
Vital Signs 01/24/25 07:40 Height 5 ft 5 in Weight 129 lb BMI 21.5 BP 108/64 Blood Pressure Location Lt brachial Position Sitting Pulse 72 Pulse Source Pulse Oximeter Pulse Oximetry (%) 98 Oxygen Delivery Method Room Air Intake Visit Reasons: physical Intake Note: Patient here for a physical exam Dog Walker Required: No Accompanied by: Self / Same As Patient Allergies gluten Allergy (Severe, Verified 01/24/25 07:49) Unknown lactose Allergy (Mild, Verified 01/24/25 07:49) Unknown gluten Allergy (Mild, Uncoded 01/24/25 07:45) Unknown Medication List - Last Reconciled 01/24/25 by Daphne Choudhury MD No Known Home Meds Tobacco use date assessed: 01/24/25 Dental Screening Dental Screen Date: 11/22/24 HPI HPI Comments History of Present Illness Details The patient is a 54-year-old female presenting for a physical exam. She reports a skin mole on her left thigh with two different colors that occasionally itches. This mole will be referred to dermatology for further evaluation. Her last mammogram was conducted a few months ago and returned normal results. The last Pap smear was performed 2 to 3 years ago, and she has an upcoming appointment with her UTILIZATION REVIEW SPECIALIST in June 2025. The patient underwent a colonoscopy in 2021 in [place], which was normal, and the next one is scheduled for 2031. She denies any chest pain, shortness of breath, or changes in bowel or bladder habits. She has no known allergies and does not take any medications. Her social history reveals that she does not smoke and drinks wine occasionally. She has a history of cholecystectomy. [facility] Surgical History Hx of colonoscopy History of cholecystectomy Family History Mother Asthma Father Renal disease Substance use disorder Maternal Grandmother Colon cancer Social History Housing: Apartment Alcohol intake: current Alcohol intake frequency: a few times a month Alcohol type: wine Patient Tobacco Use Status: Never used Tobacco e-Cigarette/Vaping Use: Never Used Second Hand Smoke Exposure: No service: No Current occupational status: employed Current occupational exposures/hazards: No Cognitive needs: No Hearing needs: No Vision needs: Yes Questionnaire Thrive Questionnaire Date Thrive assessed: 11/16/24 I am a: Patient What is your living situation today?: I have a steady place to live Within the past 12 months, did the food you bought not last and you didn't have the money to get more?: Never true Within the past 12 months, did you worry whether your food would run out before you got money to buy more?: Never true Do you have trouble paying for medicines?: No Do you have trouble getting transportation to medical appointments?: No Do you have trouble paying your heating and electricity bill?: No Do you have trouble taking care of your child, family member or friend?: No Do you have trouble with day-to-day activities such as bathing, preparing meals, shopping, managing finances, etc.?: No Are you currently unemployed and looking for a job?: No Are you interested in more education?: No Please select the resources that you would like help with: None Currently or been in a relationship where the following occur: No concerns reported THRIVE Score: 0 DALTON-7 AMB Questionnaire DALTON-7 Date DALTON - 7 assessed: 11/22/24 Source: Developed by Drs. Tae Adame, April Paredes, Andres Ornelas and colleagues, with an educational elza from [employer]. Review of Systems Const All systems reviewed & are unremarkable except as noted in HPI and below Card Denies chest pain at rest, Denies chest pain with activity, Denies edema, Denies irregular heart rhythm, Denies claudication, Denies dyspnea, Denies dyspnea on exertion, Denies orthopnea, Denies paroxysmal nocturnal dyspnea and Denies slow heart rate Resp Denies cough, Denies dyspnea and Denies dyspnea on exertion GI Denies abdominal pain, Denies change in bowel habits, Denies excessive flatus, Denies nausea and Denies vomiting Denies urinary incontinence, Denies urinary hesitancy and Denies urinary urgency Musc Denies abnormal gait, Denies atrophy, Denies deformity and Denies limited range of motion Skin/Breast Denies bleeding lesions, Denies changing lesions and Denies rash Neuro Denies abnormal gait, Denies behavioral changes and Denies lack of coordination Psych Denies behavioral changes Physical exam (Primary Care) Vital Signs: Last Vital Signs Pulse 72 08/04/25 07:40 BP 108/64 01/24/25 07:40 Pulse Ox 98 01/24/25 07:40 Oxygen Delivery Method Room Air 01/24/25 07:40 BMI result Body Mass Index 21.5 Tobacco/Smoking Status: Tobacco use Status Tobacco use date assessed 11/22/24 01/24/25 07:43 Patient Tobacco Use Status Never used Tobacco 01/24/25 07:43 e-Cigarette/Vaping Use Never Used 01/24/25 07:43 Thrive Assessment: Date of Thrive Assessment Date Thrive assessed 11/16/24 01/24/25 07:43 Currently or been in a relationship where the following occur: No concerns reported HENMT Head: Yes normal to inspection, Yes normocephalic and Yes atraumatic Ears: external ears normal Eyes General: appearance normal, both eyes and all related structures Eyelids: Yes eyelids normal Conjunctivae: conjunctivae normal Neck Neck: Yes normal visual inspection and Yes supple Resp Effort & Inspection: normal respiratory effort Auscultation: clear to auscultation bilaterally Cardio Jugular venous distension: no JVD Rate: regular rate Rhythm: regular rhythm Heart sounds: S1 normal heart sound present and S2 normal heart sound present GI Inspection: Yes normal to inspection Palpation (GI): Soft to palpation and nontender Auscultation: normal bowel sounds Skin General skin exam: no rashes or lesions noted Neuro General: no focal motor deficits Extrem General: Yes full ROM Psych Appearance: grossly normal Coding Level of Care Code Est Pt Level 3 (19303) Est Pt Prev Care 40-64y(65529) Diagnoses Physical exam Z00.00 Skin mole D22.9 Time Spent (min) 32 Assessment & Plan Assessment & Plan (1) Physical exam: Code(s): Z00.00 - Encounter for general adult medical examination without abnormal findings Category: Medical (2) Skin mole: Code(s): D22.9 - Melanocytic nevi, unspecified Category: Medical Plan The patient will be referred to dermatology for evaluation of the skin mole on her left thigh, which presents with two different colors and occasional itching. Preventative care measures include maintaining regular screening schedules: a mammogram was recently normal, a Pap smear is due with an upcoming UTILIZATION REVIEW SPECIALIST appointment, and a colonoscopy is scheduled for 2031 following a normal result in 2021. Orders: Orders Lipid Panel Today Z00.00 - Encounter for general adult medical examination without abnormal findings Comprehensive [place]. Panel Fast Today Z00.00 - Encounter for general adult medical examination without abnormal findings Referrals Dermatology Referral D22.9 - Melanocytic nevi, unspecified
== END 2025-01-24 07:57 | disposition home or self-care (01) ==
LOC: HO.HMCH 07:31
PROVIDERS: PCP Internal Medicine; Visit Provider Internal Medicine
DX: Z00.00 Encounter for general adult medical examination without abnormal findings (principal); D22.9 Melanocytic nevi, unspecified

== ENCOUNTER 2025-02-09 07:59 | Outpatient (REF) | payer OTHER, SELFPAY ==
--- OUTSIDE RECORDS SUMMARY | 2025-02-09 08:04 | XMS_ITS | Encounter Summary ---
Author Organization [facility] Address [address] [place] [address] Care Team Providers Care Barrel Raiser Name Role Phone Radha Buck MD Primary Care Provider + Encounter Details Date Type Department Care Team (Late st Contact Info) Description 01/28/2020 Lab Requisition [facility] Pathology & Laboratory Medicine - [address] [address] Guzman Dai MD [address] [place], [place] [phone] Encounter for other general examination Social History [...] types, PCR Negative Negative 02/10/2020 14:46 EDT [facility] Comment:No E6 or E7 mRNA is detected from HPV types 16,18,31,33,35,39,45,51,52,56,58,59,66, and 68 by wind tunnel mechanic mediated amplification. Papanicolaou smear specimen (specimen) CERVIX UTERI STRUCTURE / Unknown 01/27/2020 10:44 EDT 02/08/2020 15:15 EDT Guzman Dai MD PATHOLOGY ORDERABLES Final Result [facility] [address] [place] [id number] * PAP TEST (01/27/2020 10:44 EDT) Specimens A. Cervix and/or Endocervix , ThinPrep Imaging System with Manual Evaluation 02/10/2020 14:46 T [facility] Specimen Adequacy Satisfactory for Evaluation - transformation zone component present Scant due to excessive blood 02/10/2020 14:46 [facility] General Categorization Negative for intraepithelial lesion or malignancy 02/10/2020 14:46 [facility] Attestation . 02/10/2020 14:46 [facility] at 1446 EDT Clinical History NONE 02/10/20 14:46 T [facility] HPV The result for the Human Papillomavirus (HPV) Detection-High Risk Types is Negative. No E6 or E7 mRNA is detected from HPV types 16,18,31,33,35,39 ,45,51,52,56,58,5 9,66, and 68 by wind tunnel mechanic mediated amplification.Bertha ting was performed on specimen [id number] and was resulted on 02/10/2020 1409 EDT by FREDERIC, LAB INSTRUMENT RESULTS IN 02/10/2020 14:46 T [facility] Scanned Images 02/10/2020 14:46 T [facility] Papanicolaou smear specimen (specimen) CERVIX UTERI STRUCTURE / Unknown 01/27/2020 10:44 EDT 01/28/2020 13:18 EDT us Guzman Dai MD PATHOLOGY ORDERABLES Final Result [facility] [address] [place] [address] documented in this encounter Visit Diagnoses Diagnosis Encounter for other general examination documented in this encounter Care Teams Barrel Raiser Relationship Specialty Start Date End Date Radha Buck MD [address] [place] [id number] PCP - General 12/21/08 documented as of this encounter
[2025-02-09 08:12] LABS: MANUAL DIFF FLAG NO
[2025-02-09 08:23] LABS: Hematocrit 42.1 % (37.0-47.0); Hemoglobin 14.1 g/dl (12.0-16.0); Imm Gran Abs Auto 0.01 X10*3/uL (0.00-0.03); Imm Gran Pct Auto 0.2 % (0.0-0.4); Lymphocytes Absolute Auto 2.1 X10*3/uL (1.2-4.9); Mean Corpuscular HGB Conc 33.5 g/dl (31.0-35.0); Mean Corpuscular Hemoglobin 30.9 pg (27.0-33.0); Mean Corpuscular Volume 92.1 fL (80.0-98.0); NRBC Abs Auto 0.000 X10*3/uL (0.0-0.012); NRBC Pct Auto 0.0 /100WBC (0.0-0.2); Platelet Count 303 X10*3/uL (160-400); Red Blood Count 4.57 X10*6/uL (4.20-5.50); White Blood Count 5.2 X10*3/uL (4.8-10.8)
[2025-02-09 08:58] LABS: Alanine Aminotransferase 13 U/L (0-31); Albumin Level 4.2 g/dL (3.5-5.0); Alkaline Phosphatase 55 U/L (39-117); Anion Gap 12 (12-20); Aspartate Amino Transferase 24 U/L (5-31); Blood Urea Nitrogen 13 mg/dL (9-16); Calcium 8.9 mg/dL (8.4-10.2); Carbon Dioxide 28 mmol/L (22-29); Chloride 106 mmol/L (96-108); Cholesterol 165 mg/dL (<200); Estimated Glomerular Filt Rate > 60; HDL Cholesterol 50 mg/dL (>40); Potassium 4.5 mmol/L (3.3-5.1); Sodium 141 mmol/L (135-145); Total Protein 7.1 g/dL (6.5-8.0); Triglycerides 61 mg/dL (<150)
[2025-02-09 09:37] LABS: Folate 5.3 ng/mL (> or = 4.0); Vitamin B12 210 pg/mL (200-900)
[2025-02-12 17:23] LABS: Intrinsic Factor Antibodies Negative (Negative)
== END 2025-02-09 08:00 | disposition home or self-care (01) ==
LOC: HO.LAB 07:59
PROVIDERS: PCP Internal Medicine; Visit Provider Internal Medicine
DX: Z00.00 Encounter for general adult medical examination without abnormal findings (principal); E53.8 Deficiency of other specified B group vitamins; D64.9 Anemia, unspecified; Z13.6 Encounter for screening for cardiovascular disorders
CPT/HCPCS: 36415; 80053; 80061; 82607; 82746; 83516; 85025; 86340